=== PATIENT | male | born 1945 | race Caucasian/White ===

== ENCOUNTER 2016-12-14 11:37 | Observation (INO) | payer MEDICARE, BC ==
[~2016-12-14] VITALS: Ht 180.3 cm; Wt 101.9 kg
[~2016-12-14 11:37] MED LIST: CHLORTHALIDONE25 MG PO; CRESTOR20 MG PO; FLOMAX0.4 MG PO; LISINOPRIL10 MG PO; MULTIPLE VITAMI1 TA1 PO; PHENERGAN25 M1 PO; PLAVIX75 MG PO; POTASSIUM99 M1; POTASSIUM99 M1 PO; PREVACID30 MG PO; PROZAC20 MG PO; REGLAN10 MG PO; TRAZODONE HCL150 MG PO; VESICARE5 MG PO; ZOFRAN ODT4 MG/UDTAB PO
[2016-12-14 12:03] LABS: BASOPHILS 0.2 % (0-2); EOSINOPHILS 0.1 % (0-7); HEMATOCRIT 53.6 % (42.0-54.0); HEMOGLOBIN 19.5 g/dL (13.5-17.5); IMMATURE GRANULOCYTES 0.3 % (0-5); LYMPHOCYTES 22.8 % (15-50); MCH 31.6 pg (26.0-34.0); MCHC 36.4 g/dL (31.0-37.0); MCV 86.9 fL (80.0-100.0); MEAN PLATELET VOLUME 11.2 fL (7.4-10.4); MONOCYTES 10.3 % (2-11); NEUTROPHILS 66.3 % (40-80); PLATELET COUNT 128 10x3/uL (130-400); RBC 6.17 10x6/uL (4.20-6.10); RDW 13.1 % (11.5-14.5); WBC 10.4 10x3/uL (4.8-10.8)
[2016-12-14 12:24] LABS: ALBUMIN 4.5 g/dL (3.4-5.0); BILIRUBIN - TOTAL 1.02 mg/dL (0.2-1.3); CALCIUM 10.4 mg/dL (8.5-10.1); CARBON DIOXIDE 28.4 mmol/L (21.0-32.0); CREATININE - SERUM 1.4 mg/dL (0.6-1.3); POTASSIUM - SERUM 2.4 mmol/L (3.5-5.1); PROTEIN - SERUM 8.7 g/dL (6.4-8.2)
[2016-12-14 14:03] LABS: APPEARANCE TURBID (CLEAR); BILIRUBIN NEGATIVE (NEGATIVE); COLOR DK YELLOW (YELLOW); GLUCOSE NEGATIVE (NEGATIVE); KETONE MODERATE mg/dL (NEGATIVE); LEUKOCYTE ESTERASE TRACE (NEGATIVE); NITRITE NEGATIVE (NEGATIVE); PROTEIN 3+ mg/dL (NEGATIVE); SPECIFIC GRAVITY 1.015 (1.005-1.020)
[2016-12-14 14:04] LABS: BACTERIA MODERATE /hpf (NONE SEEN); GRANULAR CAST 0-5 /lpf (NONE SEEN); HYALINE CAST RARE /lpf (NONE SEEN); MUCUS >1+ /lpf (NONE SEEN); RED CELLS - URINE RARE /hpf (0-5); WHITE CELLS - URINE 0-5 /hpf (0-5)
[2016-12-14 16:28] LABS: CKMB 2.1 U/L (0.0-3.6); CREATINE KINASE 598 UL (21-232); TROPONIN-I 0.057 ng/mL (0.000-0.060)
[2016-12-14 18:27] LABS: UDS - AMPHET NEGATIVE QUAL (NEGATIVE); UDS - BARB NEGATIVE QUAL (NEGATIVE); UDS - BENZO NEGATIVE QUAL (NEGATIVE); UDS - COCAINE NEGATIVE QUAL (NEGATIVE); UDS - METH NEGATIVE QUAL (NEGATIVE); UDS - OPIATE NEGATIVE QUAL (NEGATIVE); UDS - PCP NEGATIVE QUAL (NEGATIVE); UDS - THC POSITIVE QUAL (NEGATIVE)
[2016-12-14 19:00] VITALS: BP 140/44
[2016-12-14 19:11] LABS: AMYLASE - SERUM 21 U/L (25-115); LIPASE 94 U/L (73-393)
[2016-12-14 20:30] LABS: ANION GAP 13.5 mmol/L (8-16); CALCIUM 9.1 mg/dL (8.5-10.1); CARBON DIOXIDE 29.1 mmol/L (21.0-32.0); CREATININE - SERUM 1.1 mg/dL (0.6-1.3)
[2016-12-14 20:35] LABS: POTASSIUM - SERUM 2.6 mmol/L (3.5-5.1)
[2016-12-15] VITALS (7 sets, daily range): BP systolic 98–184; BP diastolic 51–95; Ht 180.3 cm; Wt 101.9 kg
[2016-12-15 06:06] LABS: BASOPHILS 0.1 % (0-2); EOSINOPHILS 0.1 % (0-7); HEMATOCRIT 45.9 % (42.0-54.0); HEMOGLOBIN 15.8 g/dL (13.5-17.5); IMMATURE GRANULOCYTES 0.2 % (0-5); LYMPHOCYTES 14.6 % (15-50); MCH 31.1 pg (26.0-34.0); MCHC 34.4 g/dL (31.0-37.0); MONOCYTES 10.6 % (2-11); NEUTROPHILS 74.4 % (40-80); RBC 5.08 10x6/uL (4.20-6.10); RDW 13.4 % (11.5-14.5); WBC 9.1 10x3/uL (4.8-10.8)
[2016-12-15 06:31] LABS: MCV 90.4 fL (80.0-100.0); PLATELET COUNT 99 10x3/uL (130-400)
[2016-12-15 06:44] LABS: BILIRUBIN - TOTAL 0.72 mg/dL (0.2-1.3); CALCIUM 8.1 mg/dL (8.5-10.1); CARBON DIOXIDE 33.6 mmol/L (21.0-32.0); CREATININE - SERUM 1.1 mg/dL (0.6-1.3); MAGNESIUM - SERUM 2.5 mg/dL (1.8-2.4); PROTEIN - SERUM 6.6 g/dL (6.4-8.2)
[2016-12-15 07:11] LABS: PHOSPHOROUS 3.2 mg/dL (2.5-4.9)
[2016-12-15 07:13] LABS: ALBUMIN 3.3 g/dL (3.4-5.0); ANION GAP 11.1 mmol/L (8-16); POTASSIUM - SERUM 2.7 mmol/L (3.5-5.1)
[2016-12-15 07:53] LABS: PLATELET ESTIMATE DECREASED
[2016-12-15] MEDS ORDERED: NORVASC2.5 MG PO (17:04)
[2016-12-15] MEDS ORDERED: COREG6.25 MG PO (17:04)
[2016-12-15] MEDS ORDERED: PLAVIX75 MG PO (17:05)
[2016-12-15] MEDS ORDERED: CRESTOR40 MG PO (17:05)
[2016-12-15] MEDS ORDERED: PROZAC20 MG PO (17:07)
[2016-12-15] MEDS ORDERED: PREVACID30 MG PO (17:09)
[2016-12-15] MEDS ORDERED: BAYER CHEWABLE81 MG PO (17:09)
[2016-12-15] MEDS ORDERED: FLOMAX0.4 MG PO (17:10)
[2016-12-15] MEDS ORDERED: MULTIPLE VITAMI1 TA1 PO (17:13)
[2016-12-15] MEDS ORDERED: DYAZIDE 37.5/251 CAP PO (17:13)
[2016-12-16 04:00] VITALS: BP 126/59
[2016-12-16 05:34] LABS: BASOPHILS 0.3 % (0-2); HEMATOCRIT 42.2 % (42.0-54.0); HEMOGLOBIN 14.5 g/dL (13.5-17.5); IMMATURE GRANULOCYTES 0.3 % (0-5); LYMPHOCYTES 20.4 % (15-50); MCH 31.3 pg (26.0-34.0); MCHC 34.4 g/dL (31.0-37.0); MCV 91.1 fL (80.0-100.0); MONOCYTES 8.3 % (2-11); NEUTROPHILS 69.7 % (40-80); PLATELET COUNT 82 10x3/uL (130-400); RBC 4.63 10x6/uL (4.20-6.10); RDW 13.4 % (11.5-14.5)
[2016-12-16 06:05] LABS: ALBUMIN 3.1 g/dL (3.4-5.0); ALKALINE PHOSPHATASE 36 U/L (46-116); ALT (SGPT) 35 U/L (10-68); CALC OSMOLALITY 285 mosm/kg (275-300); CALCIUM 8.3 mg/dL (8.5-10.1); CARBON DIOXIDE 28.9 mmol/L (21.0-32.0); CHLORIDE - SERUM 107 mmol/L (98-107); CREATININE - SERUM 0.9 mg/dL (0.6-1.3); GLUCOSE 98 mg/dL (74-106); MAGNESIUM - SERUM 2.5 mg/dL (1.8-2.4); PHOSPHOROUS 2.4 mg/dL (2.5-4.9); POTASSIUM - SERUM 3.4 mmol/L (3.5-5.1); PROTEIN - SERUM 5.8 g/dL (6.4-8.2); SODIUM 143 mmol/L (136-145); eGFR NON AFRICAN AMERICAN 89 mL/min (90-120)
[2016-12-16 06:07] LABS: UREA NITROGEN 15 mg/dL (7-18)
[2016-12-16 07:00] VITALS: BP 102/60
[2016-12-16 12:50] VITALS: BP 119/99
[2016-12-16] MEDS ORDERED: ZOFRAN ODT4 MG/UDTAB PO (15:39)
== END 2016-12-16 16:29 | disposition home or self-care (01) ==
LOC: D.ER 11:37 → D.M2 17:05 → OBSVTIME 17:05 → D.M2 12-16 16:29
PROVIDERS: Family Medicine; ADMIT Emergency Medicine
DX: N17.9 Acute kidney failure, unspecified (principal); E87.6 Hypokalemia; E86.0 Dehydration; I25.119 Atherosclerotic heart disease of native coronary artery with unspecified angina pectoris; Z95.5 Presence of coronary angioplasty implant and graft; Z95.1 Presence of aortocoronary bypass graft; I10 Essential (primary) hypertension; G47.33 Obstructive sleep apnea (adult) (pediatric); F12.10 Cannabis abuse, uncomplicated; I73.9 Peripheral vascular disease, unspecified